=== PATIENT | female | born 1995 | race Caucasian/White ===

== ENCOUNTER → 2017-11-23 | Outpatient (CLI) | payer OTHER ==
--- NOTE | 2017-11-23 17:32 | CT ---
EXAMINATION TYPE: CT abdomen pelvis wo con DATE OF EXAM: 11/23/2017 COMPARISON: 08/07/2011 INDICATION: pyelonephritis DLP: 237 mGycm, Automated exposure control for dose reduction was used. CONTRAST: 0 mL of Isovue 300. Study performed without Oral Contrast TECHNIQUE: Axial images were obtained from above the diaphragm to the pubic rami in the axial plane a t 5 mm thick sections. Reconstructed images are reviewed on the computer in the coronal plane. FINDINGS: Limited CT sections are obtained the lung bases. The lung bases are clear. CT ABDOMEN: Liver: Normal Spleen: Normal Pancreas: Normal Adrenal glands: The adrenal glands are normal. Gallbladder: Surgically absent Kidneys: No masses are evident. No hydronephrosis is present. No cysts are present. No perinephric stranding is evident. Aorta: Normal Inferior vena cava: Normal. CT PELVIS: Loops of bowel within the abdomen and pelvis are normal. Study is without oral contrast. Appendix: Normal as visualized. Urinary bladder: Normal. Genitourinary structures: Uterus and ovaries appear within normal limits. Osseous structures: No suspicious lytic or sclerotic lesions. IMPRESSIONS: 1. No suspicious perinephric stranding suggest pyelonephritis by CT. 2. CT abdomen pelvis is unremarkable.
== END | disposition home or self-care (01) ==
LOC: RADCTMAIN 16:00
PROVIDERS: ATTEND Family Medicine
DX: K21.9 Gastro-esophageal reflux disease without esophagitis (principal); N11.1 Chronic obstructive pyelonephritis
CPT/HCPCS: 74176

== ENCOUNTER 2018-01-14 09:45 | Day surgery (SDC) | payer OTHER ==
[2018-01-12 13:18] VITALS: BMI 21.7
[~2018-01-14 09:45] MED LIST: LACTATED RINGERS 1,000 ML IV SCH
[2018-01-14] MEDS ORDERED: LIDOCAINE 1% 20 ML VIAL (10MG/ML) FOR IV START INTRADERMA ONE (11:01)
[2018-01-14 11:15] VITALS: RESP 18; TEMP 98.3
[2018-01-14] MEDS ORDERED: LIDOCAINE 1% INJ 10MG/ML (20 ML MDV) ONE (11:28)
[2018-01-14] MEDS ORDERED: PROPOFOL 10 MG/ML 20 ML VIAL IV ONE (11:28)
--- NOTE | 2018-01-14 11:31 | P.GSHP ---
History of Present Illness H&P Date: 01/14/18 Chief Complaint: GERD This a 22-year-old female who's had issues with reflux. Patient presents today for EGD. Patient states she has reflux in the supine position. She wakes up to the sting bile in the back the throat. Past Medical History Past Medical History: GERD/Reflux History of Any Multi-Drug Resistant Organisms: None Reported Past Surgical History: Cholecystectomy Additional Past Surgical History / Comment(s): OVARIAN CYST REMOVAL Past Anesthesia/Blood Transfusion Reactions: No Reported Reaction Smoking Status: Never smoker - Past Family History Mother Family Medical History: No Reported History Medications and Allergies Home Medications Medication Instructions Recorded Confirmed Type Ranitidine HCl [Zantac] 150 mg PO BID 01/12/18 01/14/18 History Allergies Allergy/AdvReac Type Severity Reaction Status Date / Time No Known Allergies Allergy Verified 01/14/18 10:51 Surgical - Exam Vital Signs Temp Pulse Resp BP Pulse Ox 98.3 F 118 H 18 143/88 99 01/14/18 11:14 01/14/18 11:14 01/14/18 11:14 01/14/18 11:14 01/14/18 11:14 - General well developed, no distress - Eyes PERRL - ENT normal pinna - Neck no masses - Respiratory normal expansion - Cardiovascular Rhythm: regular - Abdomen Abdomen: soft, non tender Assessment and Plan Assessment: GERD. We'll perform EGD.
--- NOTE | 2018-01-14 12:02 | P.OP ---
Date of Procedure: 01/14/18 Preoperative Diagnosis: GERD Postoperative Diagnosis: Antral gastritis No evidence of hiatal hernia Minimal esophagitis Procedure(s) Performed: EGD Anesthesia: MAC Surgeon: Paulie Conway Pathology: other (Antral, esophagus) Condition: stable Disposition: PACU Description of Procedure: The patient's placed on the endoscopy table in the lateral position. She received IV sedation. The gastroscope placed oropharynx passed in the esophagus into stomach. Scope was placed through the pylorus. The first and second portion of the duodenum appeared normal. The scope was then brought back the antrum and this appeared mildly inflamed. A biopsies performed. The scope was then retroflexed and the remainder of the stomach appeared normal. There was no significant hiatal hernia. The GE junction was at 40 cm. The distal esophagus appeared minimally inflamed a biopsies performed. The proximal esophagus appeared normal. Scope was withdrawn for patient. Due to the patient's symptoms of GERD. A esophagram was ordered.
[2018-01-14 12:10] VITALS: BP 116/76; PULSE 75
== END 2018-01-14 12:30 | disposition home or self-care (01) ==
LOC: ORWHC2ENDO 09:45
PROVIDERS: ATTEND Surgery
DX: K29.50 Unspecified chronic gastritis without bleeding (principal); K21.0 Gastro-esophageal reflux disease with esophagitis; Z79.899 Other long term (current) drug therapy
CPT/HCPCS: 81025; 88305; 43239; J2001; J2704

== ENCOUNTER → 2018-01-17 | Outpatient (CLI) | payer OTHER ==
--- NOTE | 2018-01-17 12:08 | FL ---
EXAMINATION TYPE: FL barium swallow DATE OF EXAM: 01/17/2018 CLINICAL HISTORY: Epigastric pain, reflux-like symptoms not improving on medication over last one mon . TECHNIQUE: A double contrast esophagram is performed utilizing air and barium. A total of 33 second s of fluoroscopic time was utilized during procedure. 33 spot images are saved during procedure. COMPARISON: CT abdomen and pelvis November 23, 2017 and upper GI study May 31, 2012 FINDINGS: The esophagus shows normal motility and emptying into the stomach. No evidence of fixed hi atal hernia or stricture noted. No intraluminal mass or diverticulum identified. No significant gastr oesophageal reflux was seen during real time performance of this study. Cholecystectomy clips are red emonstrated. IMPRESSION: No significant abnormality is seen .
== END ==
LOC: RADFLWHC 10:55
PROVIDERS: ATTEND Surgery
DX: K21.9 Gastro-esophageal reflux disease without esophagitis (principal)
CPT/HCPCS: 74220

== ENCOUNTER → 2018-12-22 | Outpatient (CLI) | payer OTHER | END | disposition home or self-care (01) | LOC: LABWHC1 11:21 | PROVIDERS: ATTEND Obstetrics & Gynecology | DX: N92.6 Irregular menstruation, unspecified (principal) | CPT/HCPCS: 36415; 84702; 86850; 86900; 86901 ==

== ENCOUNTER → 2024-05-10 | Outpatient (CLI) | payer OTHER ==
--- NOTE | 2024-05-10 13:22 | XR ---
EXAMINATION TYPE: XR cervical spine comp DATE OF EXAM: 05/10/2024 1:14 PM COMPARISON: none CLINICAL INDICATION: Female, 29 years old with history of M54.2 CERVICALGIA; PHH, pain TECHNIQUE: The cervical spine was imaged in frontal, lateral, odontoid and bilateral oblique. FINDINGS: The osseous structures show normal alignment without evidence of an acute fracture. No significant ve rtebral body osteophytes or facet joint arthropathy. The intervertebral disk spaces are preserved. Pe dicles are intact. Soft tissues are within normal limits. The odontoid appears intact. IMPRESSION: No fracture or dislocation. [facility], , 05/10/2024 1:19 PM
== END | disposition home or self-care (01) ==
LOC: RADXRMAIN 12:57
PROVIDERS: ATTEND Family Medicine
DX: M54.2 Cervicalgia (principal)
CPT/HCPCS: 72050